=== PATIENT | female | born 1945 | race Caucasian/White ===

== ENCOUNTER 2023-08-22 13:35 | Inpatient (IN) | payer MEDICARE ==
[~2023-08-22] VITALS: Ht 170.2 cm; Wt 64.4 kg
[2023-08-22 15:56] VITALS: BP 132/76; TEMP 98.6; O2SAT 97
[2023-08-22 16:00] VITALS: BP 132/76; TEMP 98.6; O2SAT 97
[2023-08-22] MEDS ORDERED: LOSA100T31 PO (16:23)
[2023-08-22] MEDS ORDERED: TRAM50TA2 PO (16:23)
[2023-08-22] MEDS ORDERED: AMLO5TAB4 PO (16:23)
[2023-08-22] MEDS ORDERED: ESCI20TA PO (16:23)
[2023-08-22] MEDS ORDERED: LORAZEPAM 0.5 MG TABLET PO PRN (16:30)
[2023-08-22] MEDS ORDERED: MAGNESIUM HYDROXIDE 30 ML UDC PO PRN (16:30)
[2023-08-22] MEDS ORDERED: ACETAMINOPHEN 325 MG TABLET PO PRN (16:30)
[2023-08-22] MEDS ORDERED: MAG HYDROX/AL HYDROX/SIMETH 30 ML UDC PO PRN (16:30)
[2023-08-22] MEDS: BLOOD SUGAR DIAGNOSTIC 1 EACH STRIP IN ONE (16:48)
[2023-08-22 20:29] VITALS: BP 107/73; TEMP 98.2; O2SAT 100
[2023-08-22] MEDS: TEMAZEPAM 7.5 MG CAPSULE PO PRN (23:42)
[2023-08-23 08:00] VITALS: BP 106/65; TEMP 97.8; O2SAT 93
[2023-08-23 08:11] LABS: ALANINE AMINOTRANSFERASE 23 U/L (12-78); ALKALINE PHOSPHATASE 94 U/L (46-116); ASPARTATE AMINOTRANSFERASE 18 U/L (15-37); CALCIUM, SERUM 9.4 mg/dL (8.5-10.1); CARBON DIOXIDE 29 mmol/L (21-32); CHLORIDE 100 mmol/L (98-107); CREATININE 0.8 mg/dL (0.6-1.3); GLUCOSE 118 mg/dL (74-106); POTASSIUM 4.1 mmol/L (3.5-5.1); SODIUM SERUM 139 mmol/L (136-145); TOTAL PROTEIN, SERUM 7.8 g/dL (6.4-8.2); UREA NITROGEN, BLOOD 21 mg/dL (7-18)
[2023-08-23 08:21] LABS: CHOLESTEROL 281 mg/dL (<200); HDL CHOLESTEROL 80 mg/dL (40-60); LDL 156 mg/dL (0-99); TRIGLYCERIDES 110 mg/dL (30-150)
[2023-08-23 08:25] LABS: BILIRUBIN,TOTAL 1.1 mg/dL (0.2-1.0)
[2023-08-23] MEDS: LOSARTAN POTASSIUM 50 MG TABLET PO SCH (08:57)
[2023-08-23] MEDS: AMLODIPINE BESYLATE 5 MG TABLET PO SCH (08:58)
[2023-08-23 16:00] VITALS: BP 101/56; TEMP 97.6; O2SAT 98
[2023-08-23 16:35] LABS: CREATININE 0.8 mg/dL (0.6-1.3)
[2023-08-24 08:00] VITALS: BP 140/71; TEMP 98; O2SAT 95
[2023-08-24] MEDS: ESCITALOPRAM OXALATE (10 MG) 10 MG TABLET PO SCH (08:12)
[2023-08-24 16:00] VITALS: BP 117/69; TEMP 98; O2SAT 95
[2023-08-24 20:00] VITALS: BP 126/79; TEMP 98.4; O2SAT 95
[2023-08-24 20:08] LABS: APPEARANCE,URINE CLEAR (CLEAR); BILIRUBIN,URINE NEGATIVE (NEGATIVE); BLOOD, URINE NEGATIVE Ery/uL (NEGATIVE); COLOR,URINE YELLOW (YELLOW); KETONES,URINE NEGATIVE (NEGATIVE); LEUKOCYTE ESTERASE ,URINE TRACE (NEGATIVE); NITRITE, URINE NEGATIVE (NEGATIVE); PROTEIN,URINE NEGATIVE (NEGATIVE); UGLUCOSE NEGATIVE (NEGATIVE); UROBILINOGEN,URINE 0.2 EU/dL (0.2)
[2023-08-24 21:23] LABS: ADD URINE CULTURE YES; BACTERIA,URINE RARE /HPF (None Seen); RBC,URINE 0-2 /HPF (0-2); SQUAMOUS EPITHELIAL CELL,UR 0-2 /HPF (None Seen)
[2023-08-25 08:00] VITALS: BP 119/67; TEMP 97.9; O2SAT 96
[2023-08-25 16:04] VITALS: BP 114/68; TEMP 97.5; O2SAT 95
[2023-08-25 21:48] VITALS: BP 108/63; TEMP 98.1; O2SAT 95
[2023-08-26 08:00] VITALS: BP 111/73; TEMP 98.2; O2SAT 96
[2023-08-26] MEDS: TRAMADOL HCL 50 MG TABLET PO PRN (10:12)
[2023-08-26 16:00] VITALS: BP 100/58; TEMP 98.6; O2SAT 97
[2023-08-26 21:21] VITALS: BP 95/62; TEMP 98.6; O2SAT 93
[2023-08-27 08:00] VITALS: BP 110/58; TEMP 97.8; O2SAT 98
[2023-08-27 16:00] VITALS: BP 103/67; TEMP 98.6; O2SAT 98
[2023-08-27 21:02] VITALS: BP 95/53; TEMP 98; O2SAT 95
[2023-08-28 08:00] VITALS: BP 112/83; TEMP 98.7; O2SAT 97
[2023-08-28 16:00] VITALS: BP 107/76; TEMP 98.1; O2SAT 91
[2023-08-28 20:22] VITALS: BP 115/57; TEMP 98.5; O2SAT 97
[2023-08-29 08:00] VITALS: BP_SYST 118; BP_SYST 122; BP_DIAS 72; BP_DIAS 84; TEMP 97.7; TEMP 97.9; O2SAT 97; O2SAT 99
[2023-08-29 16:00] VITALS: BP 118/72; TEMP 97.9; O2SAT 97
[2023-08-29 20:53] VITALS: BP 133/78; TEMP 98.2; O2SAT 75
[2023-08-30 08:00] VITALS: BP 124/70; TEMP 97.6; O2SAT 94
[2023-08-30 08:09] VITALS: BP 124/70
== END 2023-08-30 13:30 | DRG 885 ==
LOC: GPS 15:18
PROVIDERS: ADMIT Nurse Practitioner Psychiatric/Mental Health; ATTEND Internal Medicine
DX: F29 Unspecified psychosis not due to a substance or known physiological condition (principal); F33.9 Major depressive disorder, recurrent, unspecified; Z59.00 Homelessness unspecified; F41.9 Anxiety disorder, unspecified; I10 Essential (primary) hypertension; F10.90 Alcohol use, unspecified, uncomplicated; Y90.9 Presence of alcohol in blood, level not specified; G31.84 Mild cognitive impairment of uncertain or unknown etiology; Z79.899 Other long term (current) drug therapy; H91.10 Presbycusis, unspecified ear; Z91.51 Personal history of suicidal behavior; Z88.8 Allergy status to other drugs, medicaments and biological substances
CPT/HCPCS: 36415; 80053-TC; 80061-TC; 81001; 82565-TC; 82962-TC; 87086-TC; 97110-TC; 97116-TC; 97530-TC

== ENCOUNTER 2023-11-30 21:49 | Inpatient (IN) | payer MEDICARE, OTHER ==
[~2023-11-30] VITALS: Ht 167.6 cm; Wt 83.9 kg
[~2023-11-30 21:49] MED LIST: AMLO5TAB4 PO; ESCI20TA PO; LOSA100T31 PO; TRAM50TA2 PO
[2023-12-01] MEDS ORDERED: ESCI5TAB PO (03:55)
[2023-12-01] MEDS ORDERED: APIX2.5T PO (03:55)
[2023-12-01 06:42] VITALS: O2SAT 99
[2023-12-01 08:00] VITALS: BP 137/90; TEMP 97.6; O2SAT 94
[2023-12-01] MEDS ORDERED: MAG HYDROX/AL HYDROX/SIMETH 30 ML UDC PO PRN (08:00)
[2023-12-01] MEDS ORDERED: LORAZEPAM 0.5 MG TABLET PO PRN (08:00)
[2023-12-01] MEDS ORDERED: HYDR-3972 PO (08:08)
[2023-12-01] MEDS ORDERED: PANT40TA2 PO (08:08)
[2023-12-01] MEDS: BLOOD SUGAR DIAGNOSTIC 1 EACH STRIP IN ONE (08:15)
[2023-12-01] MEDS: LOSARTAN POTASSIUM 50 MG TABLET PO SCH (08:26)
[2023-12-01] MEDS: AMLODIPINE BESYLATE 5 MG TABLET PO SCH (08:26)
[2023-12-01] MEDS: APIXABAN 2.5 MG TABLET PO SCH (08:26)
[2023-12-01] MEDS ORDERED: Medication Not On Formulary EA (Escitalopram Oxalate (Lexapro) 1 TAB) PO SCH (09:00)
[2023-12-01] MEDS ORDERED: Medication Not On Formulary EA (Escitalopram Oxalate (Lexapro) 20 MG) PO SCH (09:00)
[2023-12-01] MEDS: ESCITALOPRAM OXALATE (10 MG) 10 MG TABLET PO SCH (10:34)
[2023-12-01 16:00] VITALS: BP 129/89; TEMP 98; O2SAT 98
[2023-12-01] MEDS: ACETAMINOPHEN 325 MG TABLET PO PRN (18:58)
[2023-12-01] MEDS: TRAMADOL HCL 50 MG TABLET PO PRN (19:59)
[2023-12-01 20:00] VITALS: BP 141/90; TEMP 97.8; O2SAT 97
[2023-12-01] MEDS: TEMAZEPAM 7.5 MG CAPSULE PO PRN (22:08)
[2023-12-02 07:56] LABS: CREATININE 0.6 mg/dL (0.6-1.3)
[2023-12-02 07:57] LABS: ALANINE AMINOTRANSFERASE 14 U/L (12-78); ALBUMIN 3.2 g/dL (3.4-5.0); ALKALINE PHOSPHATASE 131 U/L (46-116); ASPARTATE AMINOTRANSFERASE 7 U/L (15-37); BILIRUBIN,TOTAL 0.7 mg/dL (0.2-1.0); CALCIUM, SERUM 8.9 mg/dL (8.5-10.1); CARBON DIOXIDE 23 mmol/L (21-32); CHLORIDE 104 mmol/L (98-107); CREATININE 0.6 mg/dL (0.6-1.3); GLUCOSE 110 mg/dL (74-106); POTASSIUM 3.7 mmol/L (3.5-5.1); SODIUM SERUM 138 mmol/L (136-145); TOTAL PROTEIN, SERUM 6.5 g/dL (6.4-8.2); UREA NITROGEN, BLOOD 10 mg/dL (7-18)
[2023-12-02 08:00] VITALS: BP 146/91; TEMP 98.2; O2SAT 99
[2023-12-02 08:31] LABS: CHOLESTEROL 209 mg/dL (<200); HDL CHOLESTEROL 61 mg/dL (40-60); LDL 117 mg/dL (0-99); TRIGLYCERIDES 128 mg/dL (30-150)
[2023-12-02] MEDS: HYDROCODONE/APAP 5/325MG TABLET PO PRN (08:33)
[2023-12-02 16:00] VITALS: BP 114/83; TEMP 98.1; O2SAT 98
[2023-12-02] MEDS ORDERED: HYDROCODONE/APAP 5/325MG TABLET PO PRN (18:00)
[2023-12-02 20:27] VITALS: BP 117/87; TEMP 98.1; O2SAT 98
[2023-12-02] MEDS: PANTOPRAZOLE 40 MG TABLET.DR PO SCH (21:15)
[2023-12-03 08:00] VITALS: BP 124/89; TEMP 97.9; O2SAT 96
[2023-12-03 16:00] VITALS: BP 122/89; TEMP 98.6; O2SAT 97
[2023-12-03 20:00] VITALS: BP 110/69; TEMP 98.7; O2SAT 99
[2023-12-04 08:00] VITALS: BP 122/89; TEMP 98; O2SAT 98
[2023-12-04 16:00] VITALS: BP 118/72; TEMP 98.1; O2SAT 97
[2023-12-04 20:27] VITALS: BP 144/79; TEMP 97.8; O2SAT 99
[2023-12-04 20:30] VITALS: BP 97/68; TEMP 98.4; O2SAT 99
[2023-12-05 08:00] VITALS: BP 124/77; TEMP 98.1; O2SAT 97
[2023-12-05 16:00] VITALS: BP 127/74; TEMP 97.7; O2SAT 97
[2023-12-05] MEDS: MAGNESIUM HYDROXIDE 30 ML UDC PO PRN (17:16)
[2023-12-05 20:30] VITALS: BP 116/69; TEMP 98.2; O2SAT 96
[2023-12-06 08:00] VITALS: BP 119/67; TEMP 98.6; O2SAT 100
[2023-12-06 16:00] VITALS: BP 107/74; TEMP 97.9; O2SAT 99
[2023-12-06 20:00] VITALS: BP 112/65; TEMP 98.3; O2SAT 96
[2023-12-07 08:00] VITALS: BP 132/67; TEMP 97.7; O2SAT 98
[2023-12-07 16:00] VITALS: BP 115/87; TEMP 97.8; O2SAT 97
[2023-12-07 20:00] VITALS: BP 107/66; TEMP 97.6; O2SAT 97
[2023-12-08 08:00] VITALS: BP 142/89; TEMP 98; O2SAT 95
[2023-12-08 16:14] VITALS: BP 110/81; TEMP 97.8; O2SAT 98
[2023-12-08 20:00] VITALS: BP 113/77; TEMP 98.1; O2SAT 97
[2023-12-09] MEDS: HYDROCODONE/APAP 5/325MG TABLET PO PRN (04:04)
[2023-12-09 08:00] VITALS: BP 114/79; TEMP 97.8; O2SAT 95
[2023-12-09 16:02] VITALS: BP 104/78; TEMP 98.1; O2SAT 97
[2023-12-09 20:27] VITALS: BP 106/78; TEMP 98.1; O2SAT 96
[2023-12-10 08:00] VITALS: BP 119/80; TEMP 97.9; O2SAT 95
[2023-12-10 16:00] VITALS: BP 108/76; TEMP 97.8; O2SAT 98
[2023-12-10 21:17] VITALS: BP 110/87; TEMP 97.9; O2SAT 96
[2023-12-11 08:00] VITALS: BP 125/87; TEMP 98.2; O2SAT 94
[2023-12-11 16:00] VITALS: BP 127/76; TEMP 98.2; O2SAT 96
[2023-12-11 19:58] VITALS: BP 100/76; TEMP 98.6; O2SAT 100
[2023-12-12 08:00] VITALS: BP 127/98; TEMP 98; O2SAT 96
[2023-12-12 08:24] VITALS: BP 127/98
== END 2023-12-12 13:45 | DRG 885 ==
LOC: ER 21:59 → GPS 12-01 05:57
PROVIDERS: ADMIT Nurse Practitioner Psychiatric/Mental Health; ATTEND Internal Medicine
DX: F33.9 Major depressive disorder, recurrent, unspecified (principal); E44.1 Mild protein-calorie malnutrition; R45.851 Suicidal ideations; F03.94 Unspecified dementia, unspecified severity, with anxiety; F03.93 Unspecified dementia, unspecified severity, with mood disturbance; I48.20 Chronic atrial fibrillation, unspecified; F29 Unspecified psychosis not due to a substance or known physiological condition; F10.90 Alcohol use, unspecified, uncomplicated; Y90.9 Presence of alcohol in blood, level not specified; I10 Essential (primary) hypertension; Z79.899 Other long term (current) drug therapy; Z88.8 Allergy status to other drugs, medicaments and biological substances; Z79.01 Long term (current) use of anticoagulants; E88.09 Other disorders of plasma-protein metabolism, not elsewhere classified; F41.9 Anxiety disorder, unspecified; Z73.6 Limitation of activities due to disability; E66.9 Obesity, unspecified; Z68.29 Body mass index [BMI] 29.0-29.9, adult; F19.10 Other psychoactive substance abuse, uncomplicated
CPT/HCPCS: 36415; 80053-TC; 80061-TC; 82565-TC; 82962-TC; 97112-TC; 97116-TC; 97530-TC; 98960

== ENCOUNTER 2024-01-03 17:38 | Inpatient (IN) | payer MEDICARE, OTHER ==
[~2024-01-03] VITALS: Ht 167.6 cm; Wt 67.6 kg
[~2024-01-03 17:38] MED LIST changes: -AMLO5TAB4 PO; +APIX2.5T PO; +HYDR-3972 PO; +PANT40TA2 PO; -TRAM50TA2 PO
[2024-01-03 18:25] LABS: APPEARANCE,URINE Clear (CLEAR); BILIRUBIN,URINE LARGE (NEGATIVE); BLOOD, URINE Trace-intact Ery/uL (NEGATIVE); COLOR,URINE YELLOW (YELLOW); KETONES,URINE 40 mg/dL (NEGATIVE); LEUKOCYTE ESTERASE ,URINE Small (NEGATIVE); NITRITE, URINE Negative (NEGATIVE); PH,URINE 5.5 (5.0-8.0); PROTEIN,URINE 100 mg/dl (NEGATIVE); UGLUCOSE Negative (NEGATIVE)
[2024-01-03 18:26] LABS: ADD URINE CULTURE YES; BACTERIA,URINE Few /HPF (None Seen); SQUAMOUS EPITHELIAL CELL,UR Few /HPF (None Seen)
[2024-01-03 18:44] LABS: AMPHETAMINE, URINE NEGATIVE (NEGATIVE); BARBITURATE, URINE NEGATIVE (NEGATIVE); BENZODIAZEPINE, URINE NEGATIVE (NEGATIVE); CANNABINOID, URINE NEGATIVE (NEGATIVE); COCCAINE, URINE NEGATIVE (NEGATIVE); PHENCYCLIDINE SCREEN,URINE NEGATIVE (NEGATIVE)
[2024-01-03 18:45] LABS: OPIATE, URINE POSITIVE (NEGATIVE)
[2024-01-03 18:46] LABS: BASOPHILS # (AUTO) 0.1 K/uL (0.0-0.2); BASOPHILS % (AUTO) 0.6 % (0.0-2.0); EOSINOPHILS # (AUTO) 0.1 K/uL (0.0-0.7); EOSINOPHILS % (AUTO) 0.7 % (0.0-6.0); HEMATOCRIT 41 % (33-45); HEMOGLOBIN 13.8 g/dL (11.5-14.8); LYMPHOCYTES # (AUTO) 0.8 K/uL (0.8-4.8); LYMPHOCYTES % (AUTO) 9.8 % (20.0-44.0); MEAN CORPUSCULAR HEMOGLOBIN 33 PG (26.0-33.0); MEAN CORPUSCULAR HGB CONC 34 g/dl (31.0-36.0); MEAN CORPUSCULAR VOLUME 99 fL (82-100); MONOCYTES # (AUTO) 0.6 K/uL (0.1-1.30); MONOCYTES % (AUTO) 7.5 % (2.0-12.0); NEUTROPHILS # (AUTO) 6.7 K/uL (1.8-8.9); NEUTROPHILS % (AUTO) 81.4 % (43.0-81.0); PLATELET COUNT (AUTO) 268 K/uL (150-450); RED BLOOD CELL COUNT(AUTO) 4.12 MIL/uL (4.0-5.2); RED CELL DISTRIBUTION WIDTH 13.8 % (11.5-15.0); WHITE BLOOD COUNT (AUTO) 8.2 K/uL (4.3-11.0)
[2024-01-03 18:54] LABS: CALCIUM, SERUM 9.6 mg/dL (8.5-10.1); CARBON DIOXIDE 26 mmol/L (21-32); CHLORIDE 102 mmol/L (98-107); GLUCOSE 158 mg/dL (74-106); POTASSIUM 4.4 mmol/L (3.5-5.1); SODIUM SERUM 136 mmol/L (136-145); UREA NITROGEN, BLOOD 26 mg/dL (7-18)
[2024-01-03 19:02] LABS: ACETAMINOPHEN <10 ug/ml (10-30); ALANINE AMINOTRANSFERASE 11 U/L (12-78); ALBUMIN 4.3 g/dL (3.4-5.0); ALCOHOL, BLOOD < 3 mg/dL (0-10); ALKALINE PHOSPHATASE 91 U/L (46-116); ASPARTATE AMINOTRANSFERASE 10 U/L (15-37); BILIRUBIN,DIRECT 0.3 mg/dL (0.0-0.2); TOTAL PROTEIN, SERUM 6.8 g/dL (6.4-8.2)
[2024-01-03] MEDS: CEPHALEXIN MONOHYDRATE 500 MG CAPSULE PO ONE (19:06)
[2024-01-03] MEDS: PANTOPRAZOLE 40 MG TABLET.DR PO SCH (22:00)
[2024-01-04] MEDS ORDERED: MAGNESIUM HYDROXIDE 30 ML UDC ONE (02:42)
[2024-01-04] MEDS: MAGNESIUM HYDROXIDE 30 ML UDC PO ONE (02:43)
[2024-01-04 08:00] VITALS: BP 131/67; TEMP 98; O2SAT 94
[2024-01-04] MEDS ORDERED: MAG HYDROX/AL HYDROX/SIMETH 30 ML UDC PO PRN (08:30)
[2024-01-04] MEDS ORDERED: LORAZEPAM 0.5 MG TABLET PO PRN (08:30)
[2024-01-04] MEDS: BLOOD SUGAR DIAGNOSTIC 1 EACH STRIP IN ONE (08:39)
[2024-01-04] MEDS ORDERED: Medication Not On Formulary EA (Losartan Potassium 100 MG) PO SCH (09:00)
[2024-01-04] MEDS: LOSARTAN POTASSIUM 50 MG TABLET PO SCH (09:21)
[2024-01-04] MEDS: CEPHALEXIN MONOHYDRATE 500 MG CAPSULE PO SCH (09:21)
[2024-01-04] MEDS: APIXABAN 2.5 MG TABLET PO SCH (09:22)
[2024-01-04] MEDS: HYDROCODONE/APAP 5/325MG TABLET PO PRN (11:17)
[2024-01-04] MEDS: ESCITALOPRAM OXALATE (10 MG) 10 MG TABLET PO SCH (15:29)
[2024-01-04 16:00] VITALS: BP 120/77; TEMP 98; O2SAT 95
[2024-01-04 20:00] VITALS: BP 104/86; TEMP 98.2; O2SAT 98
[2024-01-05] MEDS: ACETAMINOPHEN 325 MG TABLET PO PRN (00:14)
[2024-01-05] MEDS: TEMAZEPAM 7.5 MG CAPSULE PO PRN (00:15)
[2024-01-05 08:00] VITALS: BP 123/86; TEMP 97.8; O2SAT 98
[2024-01-05 09:16] LABS: ALANINE AMINOTRANSFERASE 9 U/L (12-78); ALBUMIN 3.3 g/dL (3.4-5.0); ALKALINE PHOSPHATASE 95 U/L (46-116); ASPARTATE AMINOTRANSFERASE 10 U/L (15-37); BILIRUBIN,TOTAL 0.8 mg/dL (0.2-1.0); CALCIUM, SERUM 9.4 mg/dL (8.5-10.1); CARBON DIOXIDE 26 mmol/L (21-32); CHLORIDE 103 mmol/L (98-107); CREATININE 0.8 mg/dL (0.6-1.3); GLUCOSE 100 mg/dL (74-106); POTASSIUM 4.3 mmol/L (3.5-5.1); SODIUM SERUM 138 mmol/L (136-145); TOTAL PROTEIN, SERUM 6.2 g/dL (6.4-8.2); UREA NITROGEN, BLOOD 18 mg/dL (7-18)
[2024-01-05 12:02] LABS: CHOLESTEROL 191 mg/dL (<200); HDL CHOLESTEROL 56 mg/dL (40-60); LDL 103 mg/dL (0-99); TRIGLYCERIDES 99 mg/dL (30-150)
[2024-01-05 16:00] VITALS: BP 127/75; TEMP 98; O2SAT 98
[2024-01-05 19:15] LABS: THYROID STIMULATING HORMONE 2.18 uIU/mL (0.358-3.74)
[2024-01-05 20:14] VITALS: BP 104/58; TEMP 98.4; O2SAT 96
[2024-01-06 08:00] VITALS: BP 123/92; TEMP 97.6; O2SAT 96
[2024-01-06] MEDS: CYANOCOBALAMIN 1,000 MCG/ML VIAL IM SCH (09:56)
[2024-01-06] MEDS: MAGNESIUM HYDROXIDE 30 ML UDC PO PRN (13:52)
[2024-01-06 16:02] VITALS: BP 116/83; TEMP 97.8; O2SAT 97
[2024-01-06 20:40] VITALS: BP 114/82; TEMP 97.8; O2SAT 96
[2024-01-07 08:00] VITALS: BP 116/88; TEMP 97.9; O2SAT 94
[2024-01-07 16:00] VITALS: BP 125/83; TEMP 97.9; O2SAT 97
[2024-01-07 20:59] VITALS: BP 98/66; TEMP 97.9; O2SAT 95
[2024-01-08 04:07] LABS: FOLIC ACID 11.1 ng/mL (>3.0)
[2024-01-08 08:00] VITALS: BP 118/87; TEMP 97.9; O2SAT 94
[2024-01-08 16:16] VITALS: BP 110/72; TEMP 98.1; O2SAT 98
[2024-01-08 19:53] VITALS: BP 118/87; TEMP 98.1; O2SAT 94
[2024-01-08 20:05] VITALS: BP 98/61; TEMP 98.1; O2SAT 94
[2024-01-08 20:11] VITALS: BP 86/57; TEMP 98.1; O2SAT 94
[2024-01-09 08:00] VITALS: BP 110/75; TEMP 97.8; O2SAT 97
[2024-01-09 16:11] VITALS: BP 111/82; TEMP 98.2; O2SAT 98
[2024-01-09 20:00] VITALS: BP 105/67; TEMP 97.9; O2SAT 95
[2024-01-10 08:00] VITALS: BP 116/70; TEMP 97.9; O2SAT 97
[2024-01-10 16:00] VITALS: BP 119/72; TEMP 98.1; O2SAT 95
[2024-01-10 20:00] VITALS: BP 112/72; TEMP 98.1; O2SAT 97
[2024-01-11 08:00] VITALS: BP 107/85; TEMP 98.6; O2SAT 96
[2024-01-11 08:26] VITALS: BP 107/85
== END 2024-01-11 13:30 | DRG 885 ==
LOC: ER 17:44 → GPS 01-04 06:03
PROVIDERS: ADMIT Nurse Practitioner Psychiatric/Mental Health
DX: F33.2 Major depressive disorder, recurrent severe without psychotic features (principal); N39.0 Urinary tract infection, site not specified; Z59.02 Unsheltered homelessness; R45.851 Suicidal ideations; E44.1 Mild protein-calorie malnutrition; G93.40 Encephalopathy, unspecified; F29 Unspecified psychosis not due to a substance or known physiological condition; I10 Essential (primary) hypertension; K21.9 Gastro-esophageal reflux disease without esophagitis; R41.9 Unspecified symptoms and signs involving cognitive functions and awareness; I48.91 Unspecified atrial fibrillation; Z79.01 Long term (current) use of anticoagulants; Z79.899 Other long term (current) drug therapy; Z96.641 Presence of right artificial hip joint; Z53.29 Procedure and treatment not carried out because of patient's decision for other reasons; B96.89 Other specified bacterial agents as the cause of diseases classified elsewhere; F10.10 Alcohol abuse, uncomplicated; Y90.9 Presence of alcohol in blood, level not specified
CPT/HCPCS: 36415; 70450-TC; 80048-TC; 80053-TC; 80061-TC; 80076-TC; 81001; 82607-TC; 83921; 84443-TC; 85025-TC; 87081-TC; 97112-TC; 97116-TC; 97530-TC; 98960; G0480; J3420